=== PATIENT | male | born 1980 | race African-American/Black ===

== ENCOUNTER 2019-07-16 12:22 | Outpatient (CLI) | payer OTHER ==
--- NOTE | 2019-07-16 13:39 | RAD ---
PA AND LATERAL VIEWS OF THE CHEST: 07/16/19 HISTORY: Severe persistent reactive airway disease. FINDINGS: The heart size is normal. The lungs are well expanded without lobar consolidation, pneumothoraces, o r pleural effusions. No acute osseous abnormalities are seen. IMPRESSION: No radiographic evidence of acute cardiopulmonary process. POS: OFF
--- NOTE | 2019-07-16 13:54 | RAD ---
Exam: Sinuses 3 views: HISTORY: Acute rhinosinusitis FINDINGS: Bilateral maxillary sinus mucosal periosteal thickening. No air-fluid level. No overt bone destructio n. IMPRESSION: No air-fluid level or bone destruction. Mild mucosal periosteal thickening of right and left maxillary sinuses. Follow-up sinus CT scan might give additional information particularly in regards to the ostiomeatal complex region.
== END 2019-07-16 12:23 | disposition home or self-care (01) ==
LOC: BICRAD 12:22
PROVIDERS: ATTEND Internal Medicine
DX: J01.90 Acute sinusitis, unspecified (principal); J45.51 Severe persistent asthma with (acute) exacerbation
CPT/HCPCS: 70220; 71046

== ENCOUNTER 2019-08-15 13:47 | Emergency (ER) | payer OTHER ==
[2019-08-15 15:57] LABS: HIV (1/2) Antibody/Antigen Non-Reactive (NonReactive); HIV 1/2 INDEX 0.14 S/CO (<1.00)
== END 2019-08-15 15:15 | disposition home or self-care (01) ==
LOC: ERS 13:47
DX: Z11.3 Encounter for screening for infections with a predominantly sexual mode of transmission (principal); I10 Essential (primary) hypertension; F32.9 Major depressive disorder, single episode, unspecified; F17.210 Nicotine dependence, cigarettes, uncomplicated
CPT/HCPCS: 36415; 87389; 99283

== ENCOUNTER 2019-10-21 07:18 | Outpatient (CLI) | payer OTHER ==
--- NOTE | 2019-10-21 08:23 | ULT ---
Hepatic ultrasound with duplex evaluation INDICATION: Hepatitis C TECHNIQUE: Grayscale, color Doppler and spectral Doppler images were obtained of the liver, gallbladd er, common bile duct, pancreas, right kidney and spleen. COMPARISON: None FINDINGS: Liver: No focal hepatic lesion is evident. Hepatic vasculature: Left hepatic vein: Appropriate flow. Middle hepatic vein: Appropriate flow. Right hepatic vein: Appropriate flow. Hepatic artery: Hepatopedal flow. Main portal vein: Hepatopedal flow. Right portal vein: Hepatopedal flow. Left portal vein: Hepatopedal flow. Splenic artery: Appropriate flow. Splenic vein: Hepatopedal flow. Aorta: Appropriate flow. IVC: Appropriate flow. Gallbladder: Normal appearing. Common bile duct: 3.2 mm. Pancreas: Visualized pancreas appears within normal limits. Right kidney: Visualized right kidney demonstrated no focal renal lesion or hydronephrosis Spleen: The spleen measured 8.1cm in length. IMPRESSION: 1. No focal hepatic lesion. Appropriate hepatopedal flow.
== END 2019-10-21 07:19 | disposition home or self-care (01) ==
LOC: BICULT 07:18
PROVIDERS: ATTEND Physician Assistant Medical
DX: R76.8 Other specified abnormal immunological findings in serum (principal)
CPT/HCPCS: 76705

== ENCOUNTER 2021-02-23 12:51 | Inpatient (IN) | payer OTHER ==
[2021-02-23] MEDS ORDERED: Acetaminophen 650 MG/20.3 ML UDCUP PO STA (15:51)
[2021-02-23] MEDS ORDERED: Acetaminophen/Codeine Oral Solution 120 mg/12 mg per 5 ml PO PRN (15:51)
[2021-02-23] MEDS ORDERED: hydrALAZINE 20 MG/ML VIAL SLOW IVP PRN (15:53)
[2021-02-23] MEDS ORDERED: Dextrose 5% in Water 1,000 ML IV PRN (15:53)
[2021-02-23] MEDS ORDERED: Ondansetron PF 4 MG/2 ML Vial IVP PRN (15:53)
[2021-02-23] MEDS ORDERED: Dextrose 50% Abboject 50 ML SYRINGE SLOW IVP PRN (15:53)
[2021-02-23] MEDS: Acetaminophen 650 MG/20.3 ML UDCUP PO SCH ×2 (16:15→20:38)
[2021-02-23] MEDS ORDERED: Amlodipine 5 MG TAB PO SCH (16:35)
[2021-02-23 17:54] LABS: Anion Gap 11 mmol/L (10-20); BUN (Urea Nitrogen) 15 mg/dL (8.9-20.6); Calc. Creatinine Clearance 0 mL/min (70-130); Calcium 9.3 mg/dL (7.8-10.44); Carbon Dioxide 26 mmol/L (22-29); Chloride 107 mmol/L (98-107); Glucose 82 mg/dL (70-105); Potassium 3.9 mmol/L (3.5-5.1); Sodium 140 mmol/L (136-145)
[2021-02-23 19:23] VITALS: BMI 27.3
[2021-02-23 19:30] LABS: #Basophils 0.1 thou/uL (0.0-0.2); #Eosinphils 0.1 thou/uL (0.0-0.7); #Monocytes 0.7 thou/uL (0.11-0.59); #Neutrophils 4.4 thou/uL (1.40-6.50); %Basophils 0.9 % (0.0-1.0); %Eosinophils 1.1 % (0.0-10.0); %Lymphocytes 42.8 % (21.0-51.0); %Monocytes 7.2 % (0.0-10.0); Hemoglobin 16.3 g/dL (14.0-18.0); Mean Corpuscular HGB CONC 33.7 g/dL (32.0-36.0); Mean Corpuscular Hemoglobin 35.3 pg (27.0-31.0); Mean Platelet Volume 7.6 fL (7.4-10.4); Platelet Count 169 thou/uL (130-400); RBC Distribution Width 11.9 % (11.5-14.5); Red Blood Cell (RBC) Count 4.63 mill/uL (4.70-6.10); White Blood Cell (WBC) Count 9.3 thou/uL (4.8-10.8)
[2021-02-23] MEDS ORDERED: Dexamethasone 4 mg/ml Vial SLOW IVP SCH (19:30)
[2021-02-23] MEDS ORDERED: Chlorhexidine Gluconate 15 ML UDCUP SSP SCH (19:30)
[2021-02-23] MEDS ORDERED: carBAMazepine 200 MG TAB PO SCH (20:00)
[2021-02-23] MEDS: Melatonin 3 MG TAB PO SCH (20:40)
[2021-02-23] MEDS: Famotidine/PF 20 mg/2ml Vial SLOW IVP SCH (20:40)
[2021-02-23] MEDS: Clindamycin/D5W 600 MG in Premix Bag 1 BAG IVPB SCH (20:48)
[2021-02-23] MEDS: Lactated Ringer's 1,000 ML IV SCH (21:14)
[2021-02-24] MEDS: Chlorhexidine Gluconate 15 ML UDCUP SSP SCH ×3 (01:57→21:52)
[2021-02-24 02:04] LABS: SARS-CoV-2 PCR by NAA Not Detected (NotDetected)
[2021-02-24] MEDS: Clindamycin/D5W 600 MG in Premix Bag 1 BAG IVPB SCH ×3 (05:10→14:12)
[2021-02-24] MEDS: Acetaminophen 650 MG/20.3 ML UDCUP PO SCH ×4 (05:11→21:51)
[2021-02-24 05:48] LABS: #Lymphocytes 0.9 thou/uL (1.20-3.40); #Monocytes 0.1 thou/uL (0.11-0.59); #Neutrophils 4.8 thou/uL (1.40-6.50); %Basophils 0.1 % (0.0-1.0); %Eosinophils 0.2 % (0.0-10.0); %Monocytes 2.4 % (0.0-10.0); %Neutrophils 82.4 % (42.0-75.0); Hemoglobin 15.4 g/dL (14.0-18.0); Mean Corpuscular HGB CONC 33.2 g/dL (32.0-36.0); Mean Corpuscular Hemoglobin 34.5 pg (27.0-31.0); Platelet Count 185 thou/uL (130-400); RBC Distribution Width 11.7 % (11.5-14.5); Red Blood Cell (RBC) Count 4.45 mill/uL (4.70-6.10); White Blood Cell (WBC) Count 5.8 thou/uL (4.8-10.8)
[2021-02-24 06:12] LABS: Anion Gap 10 mmol/L (10-20); BUN (Urea Nitrogen) 15 mg/dL (8.9-20.6); Calc. Creatinine Clearance 153 mL/min (70-130); Calcium 8.8 mg/dL (7.8-10.44); Carbon Dioxide 27 mmol/L (22-29); Chloride 105 mmol/L (98-107); Glucose 132 mg/dL (70-105); Magnesium 1.6 mg/dL (1.6-2.6); Phosphorus 3.3 mg/dL (2.3-4.7); Potassium 4.4 mmol/L (3.5-5.1); Sodium 138 mmol/L (136-145)
[2021-02-24] MEDS ORDERED: Prevnar 13-Val Conj/PF 0.5 ML SYRINGE IM ONE (09:00)
[2021-02-24] MEDS: Lactated Ringer's 1,000 ML IV SCH ×3 (09:10→12:02)
[2021-02-24] MEDS: Amlodipine 5 MG TAB PO SCH (09:11)
[2021-02-24] MEDS: carBAMazepine 200 MG TAB PO SCH ×3 (09:11→18:17)
[2021-02-24] MEDS: Famotidine/PF 20 mg/2ml Vial SLOW IVP SCH ×2 (09:12→22:01)
[2021-02-24] MEDS ORDERED: AFRIN NASAL MIST 15 ML BOT ONE (11:45)
[2021-02-24] MEDS ORDERED: Lidocaine 2% Jelly 5 ML TUBE ONE ×2 (11:45→13:42)
[2021-02-24] MEDS ORDERED: Fentanyl 100 MCG/2 ML VIAL ONE ×2 (13:19→14:42)
[2021-02-24] MEDS ORDERED: Midazolam HCl 2 mg/2 ml Vial ONE (13:19)
[2021-02-24] MEDS ORDERED: HYDROmorphone 0.5 MG/0.5 ML SYRINGE ONE (13:19)
[2021-02-24] MEDS ORDERED: Lidocaine 1% w/Epinephrine 1:100K 20 ML VIAL ONE (13:35)
[2021-02-24] MEDS ORDERED: Chlorhexidine Gluconate 15 ML UDCUP SSP ONE (13:35)
[2021-02-24] MEDS ORDERED: Hydrocortisone 1% Cream 30 GM TUBE ONE (13:35)
[2021-02-24] MEDS ORDERED: Clindamycin/D5W 600 mg/50 ml Premix Bag ONE (13:55)
[2021-02-24] MEDS ORDERED: Ondansetron PF 4 MG/2 ML Vial ONE (14:03)
[2021-02-24] MEDS ORDERED: Labetalol HCl 100 MG/20 ML VIAL ONE ×2 (14:03→17:10)
[2021-02-24] MEDS ORDERED: Rocuronium Bromide 10 MG/ML (10ML VIAL) ONE (14:03)
[2021-02-24] MEDS ORDERED: Lidocaine 1% PF 5 ML VIAL ONE (14:03)
[2021-02-24] MEDS ORDERED: Glycopyrrolate 0.2 MG/ML 5 ML SYRINGE ONE (14:03)
[2021-02-24] MEDS ORDERED: PROPOFOL 200 MG/20 ML VIAL ONE (14:03)
[2021-02-24] MEDS ORDERED: Dexamethasone 20 MG/5 ML VIAL ONE (14:03)
[2021-02-24] MEDS ORDERED: EPINEPHrine 1 MG/ML AMP ONE (14:51)
[2021-02-24] MEDS ORDERED: Bupivacaine PF 0.5% 30 ML VIAL ONE (14:51)
[2021-02-24] MEDS: Gabapentin 100 MG CAP PO SCH ×2 (16:05→21:53)
[2021-02-24] MEDS ORDERED: HYDROmorphone 2 MG/ML VIAL ONE (16:08)
[2021-02-24] MEDS ORDERED: Bacitracin Zinc Ointment 30 gm TUBE ONE (16:52)
[2021-02-24] MEDS ORDERED: Meperidine HCl/PF 25 MG/ML VIAL ONE (17:07)
[2021-02-24] MEDS ORDERED: Labetalol HCl 100 MG/20 ML VIAL SLOW IVP PRN (17:14)
[2021-02-24] MEDS ORDERED: Promethazine HCl 25 MG/ML VIAL SLOW IVP PRN (17:14)
[2021-02-24] MEDS ORDERED: HYDROmorphone 2 MG/ML VIAL SLOW IVP PRN (17:14)
[2021-02-24] MEDS ORDERED: Promethazine HCl 25 MG/ML VIAL IM PRN (17:14)
[2021-02-24] MEDS ORDERED: Meperidine HCl/PF 25 MG/ML VIAL SLOW IVP PRN (17:14)
[2021-02-24] MEDS ORDERED: Ondansetron HCl/PF 4 MG/2 ML Vial IVP PRN (17:14)
[2021-02-24] MEDS ORDERED: Acetaminophen W/ Codeine 5 ML UDCUP PO PRN (18:20)
[2021-02-24] MEDS ORDERED: Dexamethasone 4 mg/ml Vial SLOW IVP SCH (19:30)
[2021-02-24] MEDS: Melatonin 3 MG TAB PO SCH (21:53)
[2021-02-24] MEDS: CLINDAMYCIN IVPB SCH (21:56)
[2021-02-25] MEDS: Acetaminophen 650 MG/20.3 ML UDCUP PO SCH (05:15)
[2021-02-25] MEDS: CLINDAMYCIN IVPB SCH ×2 (05:17→08:43)
[2021-02-25 08:21] VITALS: BP 146/94; TEMP 99.1
[2021-02-25] MEDS: carBAMazepine 200 MG TAB PO SCH (08:43)
[2021-02-25] MEDS: Gabapentin 100 MG CAP PO SCH (08:43)
[2021-02-25] MEDS: Chlorhexidine Gluconate 15 ML UDCUP SSP SCH (08:43)
[2021-02-25] MEDS: Famotidine/PF 20 mg/2ml Vial SLOW IVP SCH (08:44)
[2021-02-25] MEDS: Amlodipine 5 MG TAB PO SCH (08:44)
== END 2021-02-25 12:03 | disposition home or self-care (01) | DRG 142 ==
LOC: SURG A 12:51
PROVIDERS: ADMIT Surgery; ATTEND Surgery
PROC: 0NST04Z Reposition Right Mandible with Internal Fixation Device, Open Approach (ICD-10-PCS; principal; 2021-02-24)
PROC: 0NSV04Z Reposition Left Mandible with Internal Fixation Device, Open Approach (ICD-10-PCS; 2021-02-24)
DX: S02.601A Fracture of unspecified part of body of right mandible, initial encounter for closed fracture (principal); S02.652A Fracture of angle of left mandible, initial encounter for closed fracture; Z20.822 Contact with and (suspected) exposure to COVID-19; I10 Essential (primary) hypertension; F31.9 Bipolar disorder, unspecified; F20.9 Schizophrenia, unspecified; Y04.8XXA Assault by other bodily force, initial encounter; Z79.899 Other long term (current) drug therapy
CPT/HCPCS: 36415; 70486; 80048; 83735; 84100; 85025; 87635; 93005; 93010; C1713; J0171; J1100; J1170; J2175; J2250; J2405; J2704; J3010; J3490; S0020; S0028; U0003; U0005

== ENCOUNTER 2022-04-11 23:59 | Emergency (ER) | payer OTHER | END 2022-04-12 02:50 | disposition home or self-care (01) | LOC: ERS 23:59 | DX: T40.1X1A Poisoning by heroin, accidental (unintentional), initial encounter (principal); I10 Essential (primary) hypertension; F17.210 Nicotine dependence, cigarettes, uncomplicated | CPT/HCPCS: 93005 ==